=== PATIENT | female | born 1955 | race Two or more races ===

== ENCOUNTER 2017-06-13 05:37 | Day surgery (SDC) | payer OTHER | END 2017-06-13 09:30 | disposition home or self-care (01) | LOC: AMB-ENDOS 05:37 | DX: D12.2 Benign neoplasm of ascending colon (principal); K57.30 Diverticulosis of large intestine without perforation or abscess without bleeding; Z86.010 Personal history of colon polyps ==

== ENCOUNTER 2018-02-13 06:27 | Day surgery (SDC) | payer OTHER | END 2018-02-13 11:00 | disposition home or self-care (01) | LOC: AMB-ENDOS 06:27 | DX: D12.2 Benign neoplasm of ascending colon (principal); K64.1 Second degree hemorrhoids; K63.5 Polyp of colon; Z86.010 Personal history of colon polyps ==

== ENCOUNTER 2020-06-23 11:14 | Day surgery (SDC) | payer OTHER | END 2020-06-23 16:10 | disposition home or self-care (01) | LOC: AMB-ENDOS 11:14 | PROVIDERS: ATTEND Colon & Rectal Surgery | DX: K62.89 Other specified diseases of anus and rectum (principal); K64.1 Second degree hemorrhoids; Z20.822 Contact with and (suspected) exposure to COVID-19 ==